=== PATIENT | male | born 1975 | race African-American/Black ===

== ENCOUNTER → 2017-09-19 | Outpatient (CLI) | payer BC, OTHER ==
[~2017-09-19] MED LIST: AMOX500C2 PO; CATHETER FLUSH 10 ML SYR IV PRN; CYCL10TA9 PO; GLYB2.5T4 PO; HYDR-3820 PO; IOHEXOL 350 MG/ML 100 ML (OMNIPAQUE 350) VIAL IV ONE; MTF500T PO; NAPR-243 PO; NS 100 ML (IVPB) BAG IV ONE; OXYC1TAB25 PO; PRED20TA PO
[2017-09-19 11:59] LABS: BUN/CREATININE RATIO 11; CREATININE SERUM 1.28 MG/DL (0.60-1.30); GFR ESTIMATED > 60
--- NOTE | 2017-09-19 14:06 | Diagnostic Imaging Report ---
PROCEDURE: CT abdomen and pelvis with contrast. TECHNIQUE: Multiple contiguous axial images were obtained through the abdomen and pelvis after administration of intravenous contrast. INDICATION: Left upper quadrant pain for two months. No prior studies are available for comparison. The lung bases are clear. The liver and gallbladder are unremarkable. The pancreas and spleen are unremarkable. No adrenal masses detected. The kidneys are unremarkable. Aorta is nonaneurysmal. No central retroperitoneal lymphadenopathy is seen. There are two nodular densities in the right lower quadrant adjacent to cecum, presumably lymph nodes. The largest is approximately 10 mm short axis and nonspecific. There is no ascites. Bowel loops are normal caliber. Bladder is unremarkable. No inguinal or iliac lymphadenopathy is seen. IMPRESSION: Essentially unremarkable CT of the abdomen and pelvis apart from two mildly prominent lymph nodes in the right lower quadrant, perhaps on the basis of mesenteric adenitis. No other significant abnormality is seen. Dictated by: Dictated on workstation # [id number]
== END ==
LOC: RAD 11:26
PROVIDERS: ATTEND Family Medicine
DX: R59.0 Localized enlarged lymph nodes (principal); N28.9 Disorder of kidney and ureter, unspecified
CPT/HCPCS: 36415; 74177; 82565; 84520

== ENCOUNTER 2017-10-10 08:42 | Emergency (ER) | payer OTHER ==
[~2017-10-10] VITALS: Ht 175.3 cm; Wt 86.2 kg
[~2017-10-10 08:42] MED LIST changes: -CATHETER FLUSH 10 ML SYR IV PRN; -IOHEXOL 350 MG/ML 100 ML (OMNIPAQUE 350) VIAL IV ONE; -NS 100 ML (IVPB) BAG IV ONE
[2017-10-10] MEDS ORDERED: NS IV 1000 ML 1,000 ML IV ONE ×2 (09:28→10:46)
[2017-10-10] MEDS ORDERED: inSUlin (REGULAR) HUMAN 1 UNIT/0.01 ML (CHARGE PER UNIT) SC ONE (09:30)
[2017-10-10 09:38] LABS: BILIRUBIN,URINE NEGATIVE (NEGATIVE); CLARITY,URINE CLEAR; COLOR,URINE YELLOW; GLUCOSE, URINE (UA) 4+ (NEGATIVE); KETONES,URINE 4+ (NEGATIVE); LEUKOCYTE ESTERASE ,URINE NEGATIVE (NEGATIVE); NITRITE,URINE NEGATIVE (NEGATIVE); PH,URINE 5 (5-9); PROTEIN,URINE NEGATIVE (NEGATIVE); UROBILINOGEN,URINE NORMAL (NORMAL)
--- NOTE | 2017-10-10 09:40 | ED General ---
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 Pt reports he has been taking medications as prescribed. Nursing Sepsis Screen: No Definite Risk Source of Information: Patient History of Present Illness Date Seen by Provider: Oct 10, 2017 Time Seen by Provider: 09:30 Initial Comments C/O ELEVATED BLOOD SUGAR THIS AM PT STATES HE CHECKS BLOOD SUGAR TWICE A DAY --WAS 124 YESTERDAY MORNING, 167 LAST NIGHT. THIS MORNING BLOOD SUGAR WAD 387, 414, AND 457 WAS SLIGHTLY NAUSEATED EARLIER, BUT NOT NOW. NO SYMPTOMS NOW NEVER HAD BLOOD SUGAR THIS HIGH DENIES EATING ANYTHING DIFFERENT THAN NORMAL YESTERDAY DENIES ANY RECENT/CURRENT ILLNESS ATE BREAKFAST THIS AM AND TOOK ALL AM MEDICATIONS PCP: DR. RIVERA Allergies and Home Medications Allergies Coded Allergies: Laron Known Allergies (Unverified Allergy, Mild, 01/05/09) Home Medications Amoxicillin 500 Mg Capsule, 500 MG PO TID, #30 Ref 0 Prescribed by: SIMONE PALACIOS on 09/30/152307 Amoxicillin 500 Mg Capsule, 500 MG PO TID, #30 Ref 0 Prescribed by: FATOU MORGAN on 10/21/151126 Glyburide 2.5 Mg Tablet, 1 EACH PO DAILY, (Reported) Hydrocodone/Acetaminophen 1 Each Tablet, 1 EACH PO Q4H PRN for PAIN, #20 Ref 0 Prescribed by: SIMONE PALACIOS on 09/30/152307 Hydrocodone/Acetaminophen 1 Each Tablet, 1 EACH PO Q6H PRN for PAIN, #20 Ref 0 Prescribed by: FATOU MORGAN on 10/21/151126 Metformin Hcl 500 Mg Tablet, 1 EACH PO BID WITH MEALS, (Reported) Naproxen 500 Mg Tablet, 1 EACH PO BID PRN for PAIN, #20 Ref 0 FOR PAIN Prescribed by: SIMONE PALACIOS on 11/17/142346 Oxycodone Hcl/Acetaminophen 1 Tab Tablet, 1 TAB PO Q4H PRN for PAIN, #14 Ref 0 Prescribed by: SIMONE PALACIOS on 11/17/142355 Prednisone 20 Mg Tablet, 40 MG PO DAILY, #8 Ref 0 Prescribed by: SIMONE PALACIOS on 11/17/142355 Constitutional: no symptoms reported EENTM: no symptoms reported Respiratory: no symptoms reported Cardiovascular: no symptoms reported Gastrointestinal: see HPI, nausea, No vomiting Genitourinary: no symptoms reported Musculoskeletal: no symptoms reported Skin: no symptoms reported Psychiatric/Neurological: No Symptoms Reported Hematologic/Lymphatic: No Symptoms Reported Immunological/Allergic: no symptoms reported Past Ctrgpnj-Ttthru-Cnqavk Hx Patient Social History Alcohol Use: Denies Use Recreational Drug Use: No Smoking Status: Never a Smoker Recent Foreign Travel: No Contact w/Someone Who Travel: No Recent Infectious Disease Expo: No Recent Hopitalizations: No Seasonal Allergies Seasonal Allergies: No Surgeries History of Surgeries: Yes (LEFT ACHILLES TENDON REPAIR) Surgeries: Orthopedic Respiratory History of Respiratory Disorde: No Cardiovascular History of Cardiac Disorders: No Neurological History of Neurological Disord: No Reproductive System Hx Reproductive Disorders: No Sexually Transmitted Disease: No Genitourinary History of Genitourinary Disor: No Gastrointestinal History of Gastrointestinal Di: No Musculoskeletal History of Musculoskeletal Dis: Yes (spinal stenosis with chronic pain) Musculoskeletal Disorders: Chronic Back Pain Endocrine History of Endocrine Disorders: Yes (DX 2013) Endocrine Disorders: Diabetes, Non-Insulin dep HEENT History of HEENT Disorders: No Cancer History of Cancer: No Psychosocial History of Psychiatric Problem: No Integumentary History of Skin or Integumenta: No Blood Transfusions History of Blood Disorders: No Family Medical History Significant Family History: No Pertinent Family Hx Physical Exam Vital Signs Vital Signs - First Documented 10/10/17 09:13 Temp 98.1 Pulse 88 Resp 18 B/P (MAP) 141/108 (119) Pulse Ox 96 O2 Delivery Room Air Capillary Refill : Less Than 3 Seconds General Appearance: No Apparent Distress, WD/WN HEENT: PERRL/EOMI Neck: Normal Inspection Respiratory: Normal Breath Sounds, No Accessory Muscle Use, No Respiratory Distress Cardiovascular: Regular Rate, Rhythm, No Edema, No JVD, No Murmur, Normal Peripheral Pulses Gastrointestinal: Normal Bowel Sounds, No Organomegaly, No Pulsatile Mass, Non Tender, Soft Back: Normal Inspection Extremity: Normal Inspection Neurologic/Psychiatric: Alert, Oriented x3, No Motor/Sensory Deficits, Normal Mood/Affect, tube and rod straightener II-XII Norm as Tested Skin: Normal Color, Warm/Dry Progress/Results/Core Measures Suspected Sepsis Recent Fever Within 48 Hours: No Infection Criteria Present: None New/Unexplained Altered Menta: No Sepsis Screen: No Definite Risk Sepsis Diagnosis: SIRS Temperature:98.1 Pulse: 88 Respiratory Rate: 18 Laboratory Tests 10/10/17 09:20: White Blood Count 6.2 Blood Pressure 141 /108 Mean: 119 Laboratory Tests 10/10/17 09:20: Creatinine 1.40H, Platelet Count 258, Total Bilirubin 0.3 Results/Orders Lab Results Laboratory Tests Test 10/10/17 09:17 10/10/17 09:20 10/10/17 09:32 10/10/17 09:48 Range/Units Glucometer 445 *H 70-110 MG/DL White Blood Count 6.2 4.3-11.0 10^3/uL Red Blood Count 5.57 4.35-5.85 10^6/uL Hemoglobin 15.3 13.3-17.7 G/DL Hematocrit 43 40-54 % Mean Corpuscular Volume 78 L 80-99 FL Mean Corpuscular Hemoglobin 28 25-34 PG Mean Corpuscular Hemoglobin Concent 35 32-36 G/DL Red Cell Distribution Width 12.0 10.0-14.5 % Platelet Count 258 130-400 10^3/uL Mean Platelet Volume 11.3 H 7.4-10.4 FL Neutrophils (%) (Auto) 62 42-75 % Lymphocytes (%) (Auto) 30 12-44 % Monocytes (%) (Auto) 5 0-12 % Eosinophils (%) (Auto) 3 0-10 % Basophils (%) (Auto) 0 0-10 % Neutrophils # (Auto) 3.9 1.8-7.8 X 10^3 Lymphocytes # (Auto) 1.9 1.0-4.0 X 10^3 Monocytes # (Auto) 0.3 0.0-1.0 X 10^3 Eosinophils # (Auto) 0.2 0.0-0.3 10^3/uL Basophils # (Auto) 0.0 0.0-0.1 10^3/uL Sodium Level 133 L 135-145 MMOL/L Potassium Level 4.8 3.6-5.0 MMOL/L Chloride Level 94 L 98-107 MMOL/L Carbon Dioxide Level 24 21-32 MMOL/L Anion Gap 15 H 5-14 MMOL/L Blood Urea Nitrogen 13 7-18 MG/DL Creatinine 1.40 H 0.60-1.30 MG/DL Estimat Glomerular Filtration Rate > 60 BUN/Creatinine Ratio 9 Glucose Level 506 *H 70-105 MG/DL Calcium Level 10.8 H 8.5-10.1 MG/DL Magnesium Level 2.1 1.8-2.4 MG/DL Total Bilirubin 0.3 0.1-1.0 MG/DL Aspartate Amino Transf (AST/SGOT) 12 5-34 U/L Alanine Aminotransferase (ALT/SGPT) 13 0-55 U/L Alkaline Phosphatase 65 40-136 U/L Total Protein 8.5 H 6.4-8.2 GM/DL Albumin 4.7 H 3.2-4.5 GM/DL Amylase Level 79 25-125 U/L Lipase 38 8-78 U/L TSH [place] Testing 2.10 0.35-4.94 UIU/ML Urine Color YELLOW Urine Clarity CLEAR Urine pH 5 5-9 Urine Specific Dow 1.015 L 1.016-1.022 Urine Protein NEGATIVE NEGATIVE Urine Glucose (UA) 4+ H NEGATIVE Urine Ketones 4+ H NEGATIVE Urine Nitrite NEGATIVE NEGATIVE Urine Bilirubin NEGATIVE NEGATIVE Urine Urobilinogen NORMAL NORMAL MG/DL Urine Leukocyte Esterase NEGATIVE NEGATIVE Urine RBC (Auto) NEGATIVE NEGATIVE Urine RBC NONE /HPF Urine WBC NONE /HPF Urine Squamous Epithelial Cells NONE /HPF Urine Crystals NONE /LPF Urine Bacteria NEGATIVE /HPF Urine Casts NONE /LPF Urine Mucus NEGATIVE /LPF Urine Culture Indicated NO Blood Gas Puncture Site RT RAD Blood Gas Patient Temperature 98.1 Arterial Blood pH 7.39 7.37-7.43 Arterial Blood Partial Pressure CO2 40 35-45 MMHG Arterial Blood Partial Pressure O2 82 79-93 MMHG Arterial Blood HCO3 24 23-27 MMOL/L Arterial Blood Total CO2 25.5 21.0-31.0 MMOL/L Arterial Blood Oxygen Saturation 98 94-100 % Arterial Blood Base Excess -0.1 -2.5-2.5 MMOL/L Demetrius Test YES-POS Blood Gas Ventilator Setting NO Blood Gas Inspired Oxygen ROOM AIR Test 10/10/17 10:33 Range/Units Glucometer 324 H 70-110 MG/DL My Orders Orders - GUY BUTLER DO Amylase (10/10/17 09:28) Arterial Blood Gas (10/10/17 09:28) Cbc With Automated Diff (10/10/17 09:28) Comprehensive Metabolic Panel (10/10/17 09:28) Lipase (10/10/17 09:28) Magnesium (10/10/17:28) Thyroid Analyzer (10/10/17 09:28) Ua Culture If Indicated (10/10/17 09:28) Accucheck Stat ONCE (10/10/17 09:28) Saline Lock/Iv-Start (10/10/17 09:28) Monitor-Rhythm Ecg Trace Only (10/10/17 09:28) Saline Lock/Iv-Start (10/10/17 09:28) Ns Iv 1000 Ml (Sodium Chloride 0.9%) (10/10/17 09:28) Insulin (Regular) Human (Humulin R (Per (10/10/17 09:30) Accucheck Stat ONCE (10/10/17 10:29) Insulin (Regular) Human (Humulin R (Per (10/10/17 11:00) Saline Lock/Iv-Start (10/10/17 10:46) Ns Iv 1000 Ml (Sodium Chloride 0.9%) (10/10/17 10:46) Accucheck Stat ONCE (10/10/17 11:28) Medications Given in ED Current Medications Medications Dose Ordered Sig/Shankar Route Start Time Stop Time Status Last Admin Dose Admin Insulin Human Regular 15 unit ONCE ONCE IV 10/10/17 11:00 10/10/17 11:01 DC 10/10/17 11:10 15 UNIT Insulin Human Regular 20 unit ONCE ONCE SC 10/10/17 09:30 10/10/17 09:31 DC 10/10/17 09:51 20 UNIT Sodium Chloride 1,000 ml @ 0 mls/hr Q0M ONCE IV 10/10/17 09:28 10/10/17 09:31 DC 10/10/17 09:51 999 MLS/HR Sodium Chloride 1,000 ml @ 0 mls/hr Q0M ONCE IV 10/10/17 10:46 10/10/17 10:47 DC 10/10/17 11:10 999 MLS/HR Vital Signs/I&O Vital Sign - Last 12Hours 10/10/17 09:13 Temp 98.1 Pulse 88 Resp 18 B/P (MAP) 141/108 (119) Pulse Ox 96 O2 Delivery Room Air Capillary Refill : Less Than 3 Seconds Blood Pressure Mean: 119 Progress Note : Progress Note BLOOD GLUCOSE DOWN TO 199 PRIOR TO DISMISSAL Departure Impression Impression: Primary Impression: Hyperglycemia due to type 2 diabetes mellitus Disposition: 01 HOME, SELF-CARE Condition: Improved Departure-Patient Inst. Referrals: YUSEF RIVERA DO (PCP/Family) Primary Care Physician Patient Instructions: Diabetes Type 2 (DC) Add. Discharge Instructions: CONTINUE YOUR MEDICATIONS PRESCRIBED CONTINUE TO CHECK YOUR BLOOD SUGAR TWICE A DAY FOLLOW UP WITH DR RIVERA IN THE NEXT WEEK FOR FURTHER CARE All discharge instructions reviewed with patient and/or family. Voiced understanding. GUY BUTLER DO Oct 10, 2017 09:40
[2017-10-10 09:41] LABS: BASOPHILS % (AUTO) 0 % (0-10); EOSINOPHILS # (AUTO) 0.2 10^3/uL (0.0-0.3); EOSINOPHILS % (AUTO) 3 % (0-10); HEMATOCRIT 43 % (40-54); HEMOGLOBIN 15.3 G/DL (13.3-17.7); LYMPHOCYTES # (AUTO) 1.9 X 10^3 (1.0-4.0); LYMPHOCYTES % (AUTO) 30 % (12-44); MEAN CORPUSCULAR HEMOGLOBIN 28 PG (25-34); MEAN CORPUSCULAR HGB CONC 35 G/DL (32-36); MEAN CORPUSCULAR VOLUME 78 FL (80-99); MEAN PLATELET VOLUME 11.3 FL (7.4-10.4); MONOCYTES # (AUTO) 0.3 X 10^3 (0.0-1.0); MONOCYTES % (AUTO) 5 % (0-12); NEUTROPHILS # (AUTO) 3.9 X 10^3 (1.8-7.8); NEUTROPHILS % (AUTO) 62 % (42-75); PLATELET COUNT 258 10^3/uL (130-400); RED BLOOD COUNT 5.57 10^6/uL (4.35-5.85); WHITE BLOOD COUNT 6.2 10^3/uL (4.3-11.0)
[2017-10-10 09:49] LABS: BACTERIA,URINE NEGATIVE /HPF
[2017-10-10 09:55] LABS: ABG BASE EXCESS -0.1 MMOL/L (-2.5-2.5); ABG OXYGEN SATURATION 98 % (94-100); ABG PCO2 40 MMHG (35-45); ABG PH 7.39 (7.37-7.43); ABG PO2 82 MMHG (79-93); ABG TCO2 25.5 MMOL/L (21.0-31.0)
[2017-10-10 09:57] LABS: ALLENS TEST YES-POS; INSPIRED O2 ROOM AIR; PATIENT TEMP 98.1; VENTILATOR NO
[2017-10-10 10:00] LABS: ALANINE AMINOTRANSFERASE 13 U/L (0-55); ALBUMIN 4.7 GM/DL (3.2-4.5); ALKALINE PHOSPHATASE 65 U/L (40-136); AMYLASE 79 U/L (25-125); BILIRUBIN,TOTAL 0.3 MG/DL (0.1-1.0); BUN/CREATININE RATIO 9; CALCIUM 10.8 MG/DL (8.5-10.1); CARBON DIOXIDE 24 MMOL/L (21-32); CHLORIDE 94 MMOL/L (98-107); GFR ESTIMATED > 60; LIPASE 38 U/L (8-78); MAGNESIUM 2.1 MG/DL (1.8-2.4); POTASSIUM 4.8 MMOL/L (3.6-5.0); SODIUM 133 MMOL/L (135-145); TOTAL PROTEIN 8.5 GM/DL (6.4-8.2)
[2017-10-10 10:04] LABS: GLUCOSE 506 MG/DL (70-105)
[2017-10-10] MEDS ORDERED: inSUlin (REGULAR) HUMAN 1 UNIT/0.01 ML (CHARGE PER UNIT) IV ONE (11:00)
[2017-10-10 12:01] VITALS: BP 135/91
--- OUTSIDE RECORDS SUMMARY | 2017-10-12 08:44 | XMS REPORT | Continuity of Care Document ---
Author Author [facility] Organization [facility] Address Unknown Phone Unavailable Allergies Active Description Code Type Severity Reaction Onset Reported/Identified Relationship to Patient Clinical Status Yes NKANo Known Allergies NKA Miscellaneous Allergy Mild N/A 01/05/2009 Medications There is no data. Problems Date Dx Coded Attending Type Code Diagnosis Diagnosed By 02/19/2014 GELLENDER DO, YUSEF Wall Ot 250.00 07/15/2014 Ot 250.00 07/31/2014 GELLENDER DO, YUSEF Wall Ot 250.00 08/04/2014 Ot 250.00 09/03/2014 GELLENDER DO, YUSEF Wall Ot 719.41 09/03/2014 GELLENDER DO, YUSEF Wall Ot V57.1 09/11/2014 GELLENDER DO, YUSEF Wall Ot 719.41 09/11/2014 GELLENDER DO, YUSEF Wall Ot V57.1 10/02/2014 GELLENDER DO, YUSEF Wall Ot 250.00 10/02/2014 GELLENDER DO, YUSEF Wall Ot 719.41 10/02/2014 GELLENDER DO, YUSEF Wall Ot V57.1 10/05/2014 GELLENDER DO, YUSEF Wall Ot 250.00 10/05/2014 GELLENDER DO, YUSEF Wall Ot 719.41 10/05/2014 GELLENDER DO, YUSEF A Ot V57.1 10/05/2014 GELLENDER DO, YUSEF A Ot 721.0 10/05/2014 GELLENDER DO, YUSEF A Ot 721.0 10/07/2014 GELLENDER DO, YUSEF A Ot 721.0 10/15/2014 GELLENDER DO, YUSEF A Ot 719.41 10/15/2014 GELLENDER DO, YUSEF Wall Ot V57.1 10/22/2014 GELLENDER DO, YUSEF A Ot 721.0 11/18/2014 SIMONE LIVINGSTON Ot 840.9 SPRAIN SHOULDER/ARM NOS 11/18/2014 SIMONE LIVINGSTON Ot 959.2 SHLDR/UPPER ARM INJ NOS 11/18/2014 SIMONE LIVINGSTON Ot E000.8 OTHER EXTERNAL CAUSE STATUS 11/18/2014 SIMONE LIVINGSTON Ot E849.0 ACCIDENT IN HOME 11/18/2014 SIMONE LIVINGSTON Ot E928.9 ACCIDENT NOS 12/01/2014 GELLENDER DO, YUSEF Wall Ot 719.41 JOINT PAIN-SHLDER 12/01/2014 GELLENDER DO, YUSEF Wall Ot V57.1 PHYSICAL THERAPY NEC 12/02/2014 GELLENDER DO, YUSEF Wall Ot 719.41 12/02/2014 GELLENDER DO, YUSEF Wall Ot V57.1 12/02/2014 GELLENDER DO, YUSEF Wall Ot 719.41 12/02/2014 GELLENDER DO, YUSEF Wall Ot V57.1 12/03/2014 GELLENDER DO, YUSEF Wall Ot 719.41 12/03/2014 GELLENDER DO, YUSEF Wall Ot V57.1 12/21/2014 GELLENDER DO, YUSEF Wall Ot 719.41 01/12/2015 GELLENDER DO, YUSEF Wall Ot 719.41 01/12/2015 GELLENDER DO, YUSEF Mae Ot V57.1 03/29/2015 Ot 250.00 03/29/2015 GELLENDER DO, YUSEF Mae Ot 250.00 03/29/2015 GELLENDER DO, YUSEF Wall Ot 721.0 03/29/2015 GELLENDER DO, YUSEF Wall Ot 721.0 03/29/2015 GELLENDER DO, YUSEF Wall Ot 719.41 03/30/2015 GELLENDER DO, YUSEF Wall Ot 719.41 09/30/2015 Ot K02.9 DENTAL CARIES , UNSPECIFIED 10/21/2015 CATHY MAYNARD, FATOU Briggs Ot K02.9 DENTAL CARIES, UNSPECIFIED 08/01/2016 GELLENDER DO, YUSEF Wall Ot Z51.81 ENCOUNTER FOR THERAPEUTIC DRUG LEVEL MON 08/01/2016 GELLENDER DO, YUSEF Wall Ot Z79.891 SENIOR LIVING (CURRENT) USE OF OPIATE ANALGE 08/16/2016 GELLENDER DO, YUSEF Wall Ot Z51.81 ENCOUNTER FOR THERAPEUTIC DRUG LEVEL MON 08/16/2016 GELLENDER DO, YUSEF Wall Ot Z79.891 SENIOR LIVING (CURRENT) USE OF OPIATE ANALGE 05/15/2017 YUSEF RIVERA DO Ot Z51.81 ENCOUNTER FOR THERAPEUTIC DRUG LEVEL MON 05/15/2017 YUSEF RIVERA DO Ot Z79.891 SENIOR LIVING (CURRENT) USE OF OPIATE ANALGE 09/13/2017 YUSEF RIVERA DO Ot Z51.81 ENCOUNTER FOR THERAPEUTIC DRUG LEVEL MON 09/13/2017 YUSEF RIVERA DO Ot 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 Results Test Result Range Urine drug screening test - 07/31/16 11:03 Urine phencyclidine detection by screening method NEGATIVE NEGATIVE Urine benzodiazepines detection by screening method NEGATIVE NEGATIVE Urine cocaine detection NEGATIVE NEGATIVE Urine amphetamines detection by screening method NEGATIVE NEGATIVE Urine methamphetamine detection by screening method NEGATIVE NEGATIVE Urine cannabinoids detection by screening method NEGATIVE NEGATIVE Urine opiates detection by screening method POSITIVE NEGATIVE Urine barbiturates detection NEGATIVE NEGATIVE Screening urine tricyclic antidepressants detection NEGATIVE NEGATIVE Urine methadone detection by screening method NEGATIVE NEGATIVE Urine oxycodone detection NEGATIVE NEGATIVE Urine propoxyphene detection NEGATIVE NEGATIVE [id number] - 09/19/17 11:39 Serum or plasma urea nitrogen measurement (mass/volume) 14 mg/dL 7-18 Serum or plasma creatinine measurement (mass/volume) 1.28 mg/dL 0.60-1.30 Serum or plasma urea nitrogen/creatinine mass ratio 11 NRG Serum or plasma creatinine measurement with calculation of estimated glomerular filtration rate > NRG Encounters ACCT No. Visit Date/Time Discharge Status Pt. Type Provider Facility Loc./Unit Complaint [id number] 09/19/2017 11:26:00 09/19/2017 23:59:59 [facility] Outpatient YUSEF RIVERA DO [facility] RAD ABD PAIN UL QUADRANT [id number] 07/31/2016 10:50:00 07/31/2016 23:59:59 [facility] Outpatient YUSEF RIVERA DO [facility] LAB PT ON HYDROCODONE [id number] 10/21/2015 10:49:00 10/21/2015 11:31:00 DIS Emergency FATOU MORGAN MD [facility] ER DENTAL PAIN [id number] 12/31/2014 09:07:00 01/12/2015 09:00:00 DIS Outpatient YUSEF RIVERA DO [facility] REHAB [id number] 11/25/2014 08:13:00 11/25/2014 23:59:59 [facility] Outpatient YUSEF RIVERA DO [facility] RAD [id number] 11/17/2014 22:55:00 11/18/2014 00:02:00 DIS Emergency SIMONE LIVINGSTON [facility] ER L SHOULDER PAIN [id number] 10/12/2014 08:36:00 10/12/2014 23:59:59 [facility] Outpatient MIGUEL DO YUSEF [facility] REHAB L SHOULDER PAIN [id number] 10/02/2014 09:30:00 10/02/2014 23:59:59 CLS Outpatient MIGUEL SHERMAN YUSEF [facility] RAD NECK PAIN [id number] 07/15/2014 12:37:00 07/15/2014 23:59:59 [facility] Outpatient YUSEF RIVERA DO [facility] LAB DIABETES [id number] 11/21/2013 17:00:00 02/19/2014 00:01:00 DIS Outpatient ALEXANDERGRACIE SHERMAN YUSEF [facility] DSME [id number] 09/30/2015 21:57:00 Document Registration [id number] 02/20/2014 10:00:00 Document Registration
== END 2017-10-10 12:00 | disposition home or self-care (01) ==
LOC: EDUNIT# 08:42 → ER 08:44
DX: E11.65 Type 2 diabetes mellitus with hyperglycemia (principal); Z88.1 Allergy status to other antibiotic agents; Z79.84 Long term (current) use of oral hypoglycemic drugs; Z79.52 Long term (current) use of systemic steroids
CPT/HCPCS: 36415; 80053; 81000; 82150; 82805; 82962; 83690; 83735; 84443; 85025; 93041; 96365

== ENCOUNTER → 2017-12-29 | Outpatient (CLI) | payer SELFPAY ==
[2017-12-29 13:36] LABS: BACTERIA,URINE NEGATIVE /HPF; BILIRUBIN,URINE NEGATIVE (NEGATIVE); CLARITY,URINE CLEAR; COLOR,URINE YELLOW; GLUCOSE, URINE (UA) 4+ (NEGATIVE); KETONES,URINE 4+ (NEGATIVE); LEUKOCYTE ESTERASE ,URINE NEGATIVE (NEGATIVE); NITRITE,URINE NEGATIVE (NEGATIVE); PH,URINE 6 (5-9); PROTEIN,URINE 2+ (NEGATIVE); UROBILINOGEN,URINE NORMAL (NORMAL)
[2017-12-29 13:39] LABS: HEMOGLOBIN 14.8 G/DL (13.3-17.7); MEAN PLATELET VOLUME 10.5 FL (7.4-10.4); RED BLOOD COUNT 5.43 10^6/uL (4.35-5.85); RED CELL DISTRIBUTION WIDTH 12.6 % (10.0-14.5); WHITE BLOOD COUNT 5.3 10^3/uL (4.3-11.0)
[2017-12-29 13:55] LABS: ALANINE AMINOTRANSFERASE 11 U/L (0-55); ALBUMIN 4.7 GM/DL (3.2-4.5); ALKALINE PHOSPHATASE 56 U/L (40-136); BILIRUBIN,TOTAL 0.3 MG/DL (0.1-1.0); BUN/CREATININE RATIO 12; CALCIUM 9.7 MG/DL (8.5-10.1); CARBON DIOXIDE 26 MMOL/L (21-32); CHLORIDE 99 MMOL/L (98-107); CHOLESTEROL 157 MG/DL (< 200); CREATININE SERUM 1.16 MG/DL (0.60-1.30); GFR ESTIMATED > 60; GLUCOSE 287 MG/DL (70-105); HDL CHOLESTEROL 48 MG/DL (40-60); POTASSIUM 4.4 MMOL/L (3.6-5.0); SODIUM 134 MMOL/L (135-145); TOTAL PROTEIN 7.7 GM/DL (6.4-8.2); TRIGLYCERIDES 135 MG/DL (<150); VLDL CHOLESTEROL 27 MG/DL (5-40)
== END ==
LOC: LAB 13:10
PROVIDERS: ATTEND Family Medicine
DX: E11.65 Type 2 diabetes mellitus with hyperglycemia (principal)
CPT/HCPCS: 36415; 80053; 80061; 81000; 83036; 84443; 85027

== ENCOUNTER 2018-12-16 17:00 | Emergency (ER) | payer OTHER ==
[~2018-12-16] VITALS: Ht 177.8 cm; Wt 81.6 kg
--- NOTE | 2018-12-16 17:42 | ED General ---
General Chief Complaint: General Problems/Pain Stated Complaint: STOMACH PAIN/SOB/L SIDE NUMBNESS Nursing Triage Note: pt c/o abdominal pain, SOB, chest pain, and left-sided numbness x 1 hour. pt reports sx began after eating a marijuana-laced brownie from a friend at work at 1600. pt appears anxious and tachypneic at this time. Nursing Sepsis Screen: Possible Sepsis Risk Source of Information: Patient, Family Exam Limitations: No Limitations (JUAN JOHNSON MD) History of Present Illness Date Seen by Provider: Dec 16, 2018 Time Seen by Provider: 17:40 Initial Comments This 73-year-old male presents with marked anxiety after eating a marijuana brownie shortly prior to presentation emergency department. Patient relates that he is having shortness of breath, chest pain left-sided numbness and left upper abdomen and abdominal pain. The patient denies previous episodes of significant anxiety with marijuana use. Patient denies other recreational drug use. Patient denies associated fever, chills, headache, stiff neck, photophobia, dysuria or flank pain, vomiting, diarrhea, or constipation. Patient is significantly improved after arrival in the emergency department and being reassured. (JUAN JOHNSON MD) Allergies and Home Medications Allergies Coded Allergies: NKANo Known Allergies (Unverified Allergy, Mild, 01/05/09) Home Medications Amoxicillin 500 Mg Capsule, 500 MG PO TID Prescribed by: SIMONE PALACIOS on 09/30/152307 Amoxicillin 500 Mg Capsule, 500 MG PO TID Prescribed by: FATOU MORGAN on 10/21/15 112 Glyburide 2.5 Mg Tablet, 1 EACH PO DAILY, (Reported) Hydrocodone/Acetaminophen 1 Each Tablet, 1 EACH PO Q4H PRN for PAIN Prescribed by: SIMONE PALACIOS on 09/30/152307 Hydrocodone/Acetaminophen 1 Each Tablet, 1 EACH PO Q6H PRN for PAIN Prescribed by: FATOU MORGAN on 10/21/15 112 Metformin Hcl 500 Mg Tablet, 1 EACH PO BID WITH MEALS, (Reported) Naproxen 500 Mg Tablet, 1 EACH PO BID PRN for PAIN FOR PAIN Prescribed by: SIMONE PALACIOS on 11/17/14 2347 Oxycodone Hcl/Acetaminophen 1 Tab Tablet, 1 TAB PO Q4H PRN for PAIN Prescribed by: SIMONE PALACIOS on 11/17/142355 Prednisone 20 Mg Tablet, 40 MG PO DAILY Prescribed by: SIMONE PALACIOS on 11/17/142355 Patient Home Medication List Home Medication List Reviewed: Yes (JUAN JOHNSON MD) Review of Systems Review of Systems Constitutional: No chills EENTM: No hearing loss Respiratory: No cough Cardiovascular: No chest pain; palpitations Gastrointestinal: abdominal pain (LUQ); No constipation Musculoskeletal: no symptoms reported Psychiatric/Neurological: Anxiety Hematologic/Lymphatic: No Symptoms Reported Immunological/Allergic: no symptoms reported (JUAN JOHNSON MD) Past Bpyeshj-Bknygb-Efdukg Hx Past Med/Social Hx: Reviewed Nursing Past Med/Soc Hx (JUAN JOHNSON MD) Patient Social History Alcohol Use: Denies Use Recreational Drug Use: Yes Drug of Choice: marijuana Smoking Status: Never a Smoker Recent Foreign Travel: No Contact w/Someone Who Travel: No Recent Infectious Disease Expo: No Recent Hopitalizations: No (JUAN JOHNSON MD) Seasonal Allergies Seasonal Allergies: No (JUAN JOHNSON MD) Past Medical History Surgeries: Yes (LEFT ACHILLES TENDON REPAIR) Orthopedic Respiratory: No Cardiac: Yes High Cholesterol Neurological: No Reproductive Disorders: No Sexually Transmitted Disease: No Genitourinary: No Gastrointestinal: No Musculoskeletal: Yes (spinal stenosis with chronic pain) Chronic Back Pain Endocrine: Yes (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 oz. [id number]; 28.12 BMI Method:Stated General Appearance: No Apparent Distress, Anxious HEENT: Normal ENT Inspection Neck: Normal Inspection Respiratory: Normal Breath Sounds Cardiovascular: Regular Rate, Rhythm Gastrointestinal: Normal Bowel Sounds Back: Normal Inspection Extremity: Normal Inspection Neurologic/Psychiatric: Oriented x3 Skin: Normal Color, Warm/Dry (JUAN JOHNSON MD) Progress/Results/Core Measures Suspected Sepsis Recent Fever Within 48 Hours: No Infection Criteria Present: Suspected New Infection New/Unexplained Altered Menta: No Sepsis Screen: Possible Sepsis Risk SIRS Temperature:98.0 Pulse: 112 Respiratory Rate: 24 Laboratory Tests 12/16/18 17:05: Blood Pressure 163 /92 Mean: 115 Laboratory Tests 12/16/18 17:05: (JUAN JOHNSON MD) Results/Orders Lab Results Laboratory Tests Test 12/16/18 17:05 12/16/18 17:55 Range/Units White Blood Count 7.0 4.3-11.0 10^3/uL Red Blood Count 5.20 4.35-5.85 10^6/uL Hemoglobin 14.0 13.3-17.7 G/DL Hematocrit 41 40-54 % Mean Corpuscular Volume 79 L 80-99 FL Mean Corpuscular Hemoglobin 27 25-34 PG Mean Corpuscular Hemoglobin Concent 34 32-36 G/DL Red Cell Distribution Width 13.0 10.0-14.5 % Platelet Count 310 130-400 10^3/uL Mean Platelet Volume 10.3 7.4-10.4 FL Neutrophils (%) (Auto) 42 42-75 % Lymphocytes (%) (Auto) 46 H 12-44 % Monocytes (%) (Auto) 8 0-12 % Eosinophils (%) (Auto) 5 0-10 % Basophils (%) (Auto) 0 0-10 % Neutrophils # (Auto) 2.9 1.8-7.8 X 10^3 Lymphocytes # (Auto) 3.2 1.0-4.0 X 10^3 Monocytes # (Auto) 0.6 0.0-1.0 X 10^3 Eosinophils # (Auto) 0.3 0.0-0.3 10^3/uL Basophils # (Auto) 0.0 0.0-0.1 10^3/uL Sodium Level 137 135-145 MMOL/L Potassium Level 3.4 L 3.6-5.0 MMOL/L Chloride Level 100 98-107 MMOL/L Carbon Dioxide Level 23 21-32 MMOL/L Anion Gap 14 5-14 MMOL/L Blood Urea Nitrogen 21 H 7-18 MG/DL Creatinine 1.23 0.60-1.30 MG/DL Estimat Glomerular Filtration Rate > 60 BUN/Creatinine Ratio 17 Glucose Level 178 H 70-105 MG/DL Calcium Level 10.5 H 8.5-10.1 MG/DL Corrected Calcium 8.5-10.1 MG/DL Total Bilirubin 0.3 0.1-1.0 MG/DL Aspartate Amino Transf (AST/SGOT) 11 5-34 U/L Alanine Aminotransferase (ALT/SGPT) 16 0-55 U/L Alkaline Phosphatase 44 40-136 U/L Total Protein 7.8 6.4-8.2 GM/DL Albumin 4.8 H 3.2-4.5 GM/DL Urine Color YELLOW Urine Clarity CLEAR Urine pH 5 5-9 Urine Specific [place] 1.010 L 1.016-1.022 Urine Protein NEGATIVE NEGATIVE Urine Glucose (UA) 4+ H NEGATIVE Urine Ketones 1+ H NEGATIVE Urine Nitrite NEGATIVE NEGATIVE Urine Bilirubin NEGATIVE NEGATIVE Urine Urobilinogen NORMAL NORMAL MG/DL Urine Leukocyte Esterase NEGATIVE NEGATIVE Urine RBC (Auto) NEGATIVE NEGATIVE Urine RBC RARE /HPF Urine WBC NONE /HPF Urine Squamous Epithelial Cells RARE /HPF Urine Crystals NONE /LPF Urine Bacteria NEGATIVE /HPF Urine Casts NONE /LPF Urine Mucus NEGATIVE /LPF Urine Culture Indicated NO Urine Opiates Screen POSITIVE H NEGATIVE Urine Oxycodone Screen NEGATIVE NEGATIVE Urine Methadone Screen NEGATIVE NEGATIVE Urine Propoxyphene Screen NEGATIVE NEGATIVE Urine Barbiturates Screen NEGATIVE NEGATIVE Ur Tricyclic Antidepressants Screen NEGATIVE NEGATIVE Urine Phencyclidine Screen NEGATIVE NEGATIVE Urine Amphetamines Screen NEGATIVE NEGATIVE Urine Methamphetamines Screen NEGATIVE NEGATIVE Urine Benzodiazepines Screen NEGATIVE NEGATIVE Urine Cocaine Screen NEGATIVE NEGATIVE Urine Cannabinoids Screen POSITIVE H NEGATIVE (FATOU MORGAN MD) Vital Signs/I&O 12/16/18 17:07 Temp 98.0 Pulse 112 Resp 24 B/P (MAP) 163/92 (115) Pulse Ox 100 O2 Delivery Room Air (FATOU MORGAN MD) Vital Signs/I&O Capillary Refill : Less Than 3 Seconds (JUAN JOHNSON MD) Blood Pressure Mean: 115 Progress Note : Progress Note 1814: Assumed care of the patient from Dr. Johnson pending labs. Monitor patient. 1914: Patient is overall improved and essentially resolved with respect to his presenting symptoms. I did discuss with him at length regarding marijuana use and precautions. As he is doing better and labs do not show Virgil- Synephrine findings, patient to be discharged home. Discharged home with return precautions. Patient verbalized understanding of instructions and agreement with plan. (FATOU MORGAN MD) Diagnostic Imaging Diagonstic Imaging: Xray Plain Films/CT/US/NM/MRI: chest Comments [facility] [place], [place] NAME: TONE RAMAN [facility] REC#: [id number] PT STATUS: REG ER : 1975 PHYSICIAN: JUAN JOHNSON MD ADMIT DATE: 12/16/18/ER Draft Date of Exam:12/16/18 CHEST 1 VIEW, AP/PA ONLY EXAMINATION: Portable chest INDICATION: Chest pain and shortness of breath. No comparison is available. FINDINGS: The lungs demonstrate no focal infiltrate or consolidation. There is no effusion. There is no pneumothorax. Heart size and mediastinal contours appear appropriate. Pulmonary vascularity appears within normal limits. There is no acute or suspicious osseous abnormality. IMPRESSION: 1. No radiographic evidence of an acute cardiopulmonary process. Dictated on workstation # [id number] Dict: 12/16/18 1822 Trans: 12/16/18 1842 [facility] [id number] Interpreted by: XAVIER BURRELL MD Electronically signed by: (FATOU MORGAN MD) Departure Impression Primary Impression: Marijuana intoxication Qualified Codes: F12.920 - Cannabis use, unspecified with intoxication, uncomplicated Disposition: 01 HOME, SELF-CARE Condition: Improved Departure-Patient Inst. Decision time for Depature: 19:26 (FATOU MORGAN MD) Referrals: YUSEF RIVERA DO (PCP/Family) Primary Care Physician Patient Instructions: Marijuana Use and Addiction Add. Discharge Instructions: All discharge instructions reviewed with patient and/or family. Voiced understanding. Drink plenty of fluids. Get some rest. Eat a normal diet. Follow-up with your DrKeren in a few days for recheck. Return for worse pain, fever, vomiting, weakness , breathing problems or other concerns as needed. JUAN JOHNSON MD Dec 16, 2018 17:42 FATOU MORGAN MD Dec 16, 2018 19:27
[2018-12-16 17:46] LABS: BASOPHILS % (AUTO) 0 % (0-10); EOSINOPHILS # (AUTO) 0.3 10^3/uL (0.0-0.3); EOSINOPHILS % (AUTO) 5 % (0-10); HEMATOCRIT 41 % (40-54); LYMPHOCYTES # (AUTO) 3.2 X 10^3 (1.0-4.0); LYMPHOCYTES % (AUTO) 46 % (12-44); MEAN CORPUSCULAR HEMOGLOBIN 27 PG (25-34); MEAN CORPUSCULAR HGB CONC 34 G/DL (32-36); MEAN CORPUSCULAR VOLUME 79 FL (80-99); MEAN PLATELET VOLUME 10.3 FL (7.4-10.4); MONOCYTES # (AUTO) 0.6 X 10^3 (0.0-1.0); MONOCYTES % (AUTO) 8 % (0-12); NEUTROPHILS # (AUTO) 2.9 X 10^3 (1.8-7.8); NEUTROPHILS % (AUTO) 42 % (42-75); PLATELET COUNT 310 10^3/uL (130-400)
[2018-12-16 18:02] LABS: BILIRUBIN,URINE NEGATIVE (NEGATIVE); CLARITY,URINE CLEAR; COLOR,URINE YELLOW; GLUCOSE, URINE (UA) 4+ (NEGATIVE); KETONES,URINE 1+ (NEGATIVE); LEUKOCYTE ESTERASE ,URINE NEGATIVE (NEGATIVE); NITRITE,URINE NEGATIVE (NEGATIVE); PH,URINE 5 (5-9); PROTEIN,URINE NEGATIVE (NEGATIVE); UROBILINOGEN,URINE NORMAL (NORMAL)
[2018-12-16 18:02] LABS: ALANINE AMINOTRANSFERASE 16 U/L (0-55); ALBUMIN 4.8 GM/DL (3.2-4.5); ALKALINE PHOSPHATASE 44 U/L (40-136); BILIRUBIN,TOTAL 0.3 MG/DL (0.1-1.0); BUN/CREATININE RATIO 17; CALCIUM 10.5 MG/DL (8.5-10.1); CARBON DIOXIDE 23 MMOL/L (21-32); CHLORIDE 100 MMOL/L (98-107); CREATININE SERUM 1.23 MG/DL (0.60-1.30); GFR ESTIMATED > 60; GLUCOSE 178 MG/DL (70-105); POTASSIUM 3.4 MMOL/L (3.6-5.0); SODIUM 137 MMOL/L (135-145); TOTAL PROTEIN 7.8 GM/DL (6.4-8.2)
[2018-12-16 18:08] LABS: BACTERIA,URINE NEGATIVE /HPF; RBC,URINE RARE /HPF; SQUAMOUS EPITHELIAL CELL,UR RARE /HPF
[2018-12-16 18:24] LABS: AMPHETAMINE SCREEN, URINE NEGATIVE (NEGATIVE); BARBITURATE SCREEN URINE NEGATIVE (NEGATIVE); BENZODIAZEPINES SCREEN URINE NEGATIVE (NEGATIVE); CANNABINOID SCREEN, URINE POSITIVE (NEGATIVE); COCAINE SCREEN URINE NEGATIVE (NEGATIVE); METHADONE STAT NEGATIVE (NEGATIVE); METHAMPHETAMINE SCREEN URINE S NEGATIVE (NEGATIVE); OPIATE SCREEN URINE POSITIVE (NEGATIVE); OXYCODONE STAT NEGATIVE (NEGATIVE); PROPOXYPHENE STAT NEGATIVE (NEGATIVE); TRICYCLIC ANTIDEPRESSANTS SCRE NEGATIVE (NEGATIVE)
--- NOTE | 2018-12-16 18:42 | Diagnostic Imaging Report ---
EXAMINATION: Portable chest INDICATION: Chest pain and shortness of breath. No comparison is available. FINDINGS: The lungs demonstrate no focal infiltrate or consolidation. There is no effusion. There is no pneumothorax. Heart size and mediastinal contours appear appropriate. Pulmonary vascularity appears within normal limits. There is no acute or suspicious osseous abnormality. IMPRESSION: 1. No radiographic evidence of an acute cardiopulmonary process. Dictated by: Dictated on workstation # [id number]
[2018-12-16 19:32] VITALS: BP 110/69
== END 2018-12-16 19:32 | disposition home or self-care (01) ==
LOC: EDUNIT# 17:00 → ER 17:02
DX: F12.920 Cannabis use, unspecified with intoxication, uncomplicated (principal); F41.9 Anxiety disorder, unspecified; E78.00 Pure hypercholesterolemia, unspecified; E11.9 Type 2 diabetes mellitus without complications; Z79.4 Long term (current) use of insulin; Z79.52 Long term (current) use of systemic steroids
CPT/HCPCS: 36415; 71045; 80053; 80306; 81000; 85025; 93005